=== PATIENT | female | born 1960 | race Caucasian/White ===

== ENCOUNTER 2018-11-15 16:44 | Emergency (ER) | payer BC ==
[~2018-11-15] VITALS: Ht 165.1 cm; Wt 90.7 kg
--- NOTE | 2018-11-15 17:08 | NUR ---
ED Nurse Note: Pt came into the Er after pulling her right shoulder muscle 5 days ago. Pt states that she was stretching and the pain is progressively getting worse. Pt is rating the pain an 8/10 on the area. Non radiating. Pt is A + O x4. Ambulatory. Skin warm to touch.
[2018-11-15 17:09] VITALS: BP 133/72
--- NOTE | 2018-11-15 17:25 | Emergency Room Report ---
History of Present Illness General Chief Complaint: Upper Extremity Injury Source: Patient Present Illness HPI 58 YO Female presents to the ED c/o right lateral shoulder pain that is 8/10 in severity and has radiation posteriorly and upward towards the trapezius. pt. is worried she may have strained a muscle. States her symptoms onset was after stretching her arms. Patient denies hearing a pop or having an appreciable trauma or fall otherwise. Patient denies skin color changes, paresthesias, loss of gross motor movements or sensation in the affected extremity. Patient reports pain is exacerbated with attempts to raise her arm outward as well as in attempt to put her bra straps on. Patient states that she has been taking Advil with no relief. Denies neck pain/stiffness or PHAN. No relieving factors at this time, patient states that she is right-hand dominant. Allergies: Coded Allergies: No Known Allergies (Unverified , 11/15/18) Patient History Past Medical History: see triage record Past Surgical History: none Pertinent Family History: none Now: No Reviewed Nursing Documentation: PMH: Agreed; PSxH: Agreed Nursing Documentation-PMH Past Medical History: No Stated History Review of Systems All Other Systems: negative except mentioned in HPI Physical Exam Vital Signs Date Time Temp Pulse Resp B/P (MAP) Pulse Ox O2 Delivery O2 Flow Rate FiO2 11/15/18 17:01 98.2 76 18 132/76 95 Room Air Sp02 EP Interpretation: reviewed, normal General Appearance: no apparent distress, alert, GCS 15, non-toxic Head: normocephalic, atraumatic Eyes: bilateral eye normal inspection, bilateral eye PERRL ENT: hearing grossly normal, normal voice Neck: full range of motion, no meningismus, no bony tend Respiratory: chest non-tender, lungs clear, normal breath sounds, speaking full sentences Cardiovascular #1: regular rate, rhythm, normal capillary refill Cardiovascular #2: 2+ radial (R) Musculoskeletal: back normal, gait/station normal, normal range of motion, tender - lateral aspect of the shoulder posterior aspect of the right deltoid region, with ttp in the right trapezius. Pain with raising arm out laterallly past the 40* angle. pain with lift-off test. Neurologic: alert, oriented x3, responsive, motor strength/tone normal, sensory intact, normal gait, speech normal, grossly normal Psychiatric: judgement/insight normal Skin: normal color, no rash, warm/dry, well hydrated Medical Decision Making PA Attestation Dr. Johnson is my supervising Physician whom patient management has been discussed with. Diagnostic Impression: Primary Impression: Muscle strain of right shoulder region Qualified Codes: S46.911A - Strain of unspecified muscle, fascia and tendon at shoulder and upper arm level, right arm, initial encounter ER Course 58 YO Female presents to the ED c/o right lateral shoulder pain that is 8/10 in severity and has radiation posteriorly and upward towards the trapezius. pt. is worried she may have strained a muscle. States her symptoms onset was after stretching her arms. Patient denies hearing a pop or having an appreciable trauma or fall otherwise. Patient denies skin color changes, paresthesias, loss of gross motor movements or sensation in the affected extremity. Patient reports pain is exacerbated with attempts to raise her arm outward as well as in attempt to put her bra straps on. Patient states that she has been taking Advil with no relief. Denies neck pain/stiffness or PHAN. No relieving factors at this time, patient states that she is right-hand dominant. Ddx considered but are not limited to Fracture, dislocation, contusion, Sprain/ Strain/Spasm. Vital signs: are WNL, pt. is afebrile H&PE are most consistent with musculoskeletal injury will perform imaging to r/ o fractures/dislocations. ORDERS: - X-ray's not indicated at this time as no bony tenderness, and no suspicion for fracture or dislocation. ED INTERVENTIONS: - - Right arm Sling applied by vascular ultrasound technologist. Pt. remains neurovascularly intact. -I do not identify an emergent condition at this time. With current presentation , pt. is stable for close outpatient follow up and conservative treatment. D/ w pt. to return promptly to ED with worsening or new symptoms.- Pt. verbalizes' understanding and agreement with proposed treatment plan.proposed treatment plan. DISCHARGE: At this time pt. is stable for d/c to home. Will provide printed patient care instructions, and any necessary prescriptions. Care plan and follow up instructions have been discussed with the patient prior to discharge. Last Vital Signs Date Time Temp Pulse Resp B/P (MAP) Pulse Ox O2 Delivery O2 Flow Rate FiO2 11/15/18 17:09 98.1 78 19 133/72 96 Room Air Disposition: HOME, SELF-CARE Condition: Stable Scripts Naproxen* (NAPROXEN*) 500 Mg Tablet 500 MG ORAL TWICE A WEEK for 7 Days, #14 TAB 0 Refills Prov: Nicol Merchant 11/15/18 Methocarbamol* (ROBAXIN-750*) 750 Mg Tablet 750 MG PO QID for 7 Days, #28 TAB 0 Refills Prov: Nicol Merchant 11/15/18 Patient Instructions: Shoulder Sprain Additional Instructions: Take medications as directed. Do not drink alcohol, drive, or operate heavy machinery while taking Robaxin ( Muscle Relaxers) as this may cause drowsiness. Follow up with an CONTINUING EDUCATION SPECIALIST in 3-5 days, even if your symptoms have resolved. If symptoms persist MRI may be required at the discretion of your PCP or Ortho Specialist. --Please review list of primary care clinics, if you do not already have a primary care provider who can give you an Orthopedic Referral. Return sooner to ED if new symptoms occur, or current symptoms become worse. - Please note that this Emergency Department Report was dictated using [employer] operations clerk technology software, occasionally this can lead to erroneous entry secondary to interpretation by the dictation equipment. Nicol Merchant Nov 15, 2018 17:25
[2018-11-15] MEDS ORDERED: ROBAXIN-750750 MG PO (17:30)
[2018-11-15] MEDS ORDERED: NAPROXEN500 M2 ORAL (17:30)
--- NOTE | 2018-11-15 17:32 | NUR ---
ED Nurse Note: Sling provided for pt.
[2018-11-15 17:34] VITALS: BP 135/77
--- NOTE | 2018-11-15 17:35 | NUR ---
ER DISCHARGE NOTE: Patient is cleared to be discharged per ERMD, pt is aox4, on room air, with stable vital signs. pt was given dc and prescription instructions, pt was able to verbalize understanding, pt id band removed without complications. pt is able to ambulate with steady gait. pt took all belongings.
== END 2018-11-15 18:00 | disposition home or self-care (01) ==
LOC: EMR 17:41
DX: S46.911A Strain of unspecified muscle, fascia and tendon at shoulder and upper arm level, right arm, initial encounter (principal); X58.XXXA Exposure to other specified factors, initial encounter; Y92.9 Unspecified place or not applicable
CPT/HCPCS: 99282